=== PATIENT | female | born 1985 | race Caucasian/White ===

== ENCOUNTER 2017-05-31 21:42 | Emergency (ER) | payer SELFPAY, OTHER | END 2017-05-31 22:42 | disposition left against medical advice (07) | LOC: E/R 22:42 | DX: Z53.21 Procedure and treatment not carried out due to patient leaving prior to being seen by health care provider (principal) ==

== ENCOUNTER 2017-05-31 23:27 | Emergency (ER) | payer SELFPAY | END 2017-06-01 06:04 | disposition left against medical advice (07) | LOC: FTE 23:27 | DX: Z53.21 Procedure and treatment not carried out due to patient leaving prior to being seen by health care provider (principal) ==